=== PATIENT | male | born 1965 | race African-American/Black ===

== ENCOUNTER 2017-01-24 07:18 | Emergency (ER) | payer MEDICARE ==
[~2017-01-24] VITALS: Ht 177.8 cm; Wt 83.9 kg
[~2017-01-24 07:18] MED LIST: ASPI81TA2 PO; ATOR20TA58 PO; CARV6.25 PO; CLOP75TA27 PO; HYDR-2762 PO; HYDR-971 PO; NAPR550T PO; ORPH100T PO; atorvastatin; coreg; lipitor
[2017-01-24 07:38] VITALS: BP 106/65
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
[2017-01-24] MEDS ORDERED: IBUPROFEN 600 MG TABLET. PO ONE (08:00)
[2017-01-24] MEDS ORDERED: CYCLOBENZAPRINE 10 MG TABLET. PO ONE (08:00)
[2017-01-24] MEDS ORDERED: CYCL10TA2 PO (08:17)
--- NOTE | 2017-01-24 08:43 | RAD ---
Left femur, 2 views, 01/24/2017: History: Pain, fall No fracture or bony abnormality is detected. The soft tissues are unremarkable. IMPRESSION: No acute left femoral abnormality is detected.
== END 2017-01-24 08:47 | disposition home or self-care (01) ==
LOC: ER 07:18
DX: M79.652 Pain in left thigh (principal); I25.2 Old myocardial infarction; E78.00 Pure hypercholesterolemia, unspecified; I10 Essential (primary) hypertension; M17.11 Unilateral primary osteoarthritis, right knee; Z88.8 Allergy status to other drugs, medicaments and biological substances; W10.9XXA Fall (on) (from) unspecified stairs and steps, initial encounter; Y93.89 Activity, other specified; Y92.89 Other specified places as the place of occurrence of the external cause; Y99.8 Other external cause status
CPT/HCPCS: 73552; 99284

== ENCOUNTER 2017-09-14 08:31 | Emergency (ER) | payer MEDICARE, MEDICAID ==
[~2017-09-14] VITALS: Ht 177.8 cm; Wt 79.8 kg
[~2017-09-14 08:31] MED LIST changes: +ASPI-630 PO; -ASPI81TA2 PO; -CLOP75TA27 PO; +CLOP75TA57 PO; +CYCL10TA2 PO; +NAPR-682 PO; -NAPR550T PO
[2017-09-14 08:42] VITALS: BP 178/108
[2017-09-14] MEDS ORDERED: DICL50TA4 PO (09:13)
[2017-09-14] MEDS ORDERED: DIAZ5TAB PO (09:13)
[2017-09-14] MEDS ORDERED: METH4TAB2 PO (09:13)
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
== END 2017-09-14 09:24 | disposition home or self-care (01) ==
LOC: ER 08:31
DX: S76.311A Strain of muscle, fascia and tendon of the posterior muscle group at thigh level, right thigh, initial encounter (principal); I10 Essential (primary) hypertension; E78.00 Pure hypercholesterolemia, unspecified; I25.2 Old myocardial infarction; M19.90 Unspecified osteoarthritis, unspecified site; Z88.8 Allergy status to other drugs, medicaments and biological substances; X58.XXXA Exposure to other specified factors, initial encounter; Y93.39 Activity, other involving climbing, rappelling and jumping off; Y99.8 Other external cause status; Y92.89 Other specified places as the place of occurrence of the external cause
CPT/HCPCS: 99283

== ENCOUNTER 2018-03-21 11:01 | Emergency (ER) | payer MEDICARE, MEDICAID ==
[2018-03-21] MEDS: fentaNYL PF VIAL 100 MCG/2 ML VIAL IV ×2 (12:01→14:33)
[2018-03-21 12:12] LABS: ADD MAN DIFF? NO
[2018-03-21 12:14] LABS: BASO # 0.1 x10^3/uL (0.0-0.2); BASO % 0 % (0-3); EOS # 0.1 x10^3/uL (0.0-0.7); EOS % 1 % (0-3); HEMATOCRIT 43.5 % (39.0-53.0); HEMOGLOBIN 14.9 g/dL (13.0-17.5); LYMPH % 34 % (24-48); MEAN CORPUSCULAR HEMOGLOBIN 32 pg (25-35); MEAN CORPUSCULAR HGB CONC 34 g/dL (31-37); MEAN CORPUSCULAR VOLUME 92 fL (79-100); MONO # 0.7 x10^3/uL (0.0-1.1); MONO % 6 % (0-9); NEUT % 59 % (31-73); PLATELET COUNT 241 x10^3/uL (140-400); RED BLOOD COUNT 4.72 x10^6/uL (4.30-5.70); WHITE BLOOD COUNT 11.9 x10^3/uL (4.0-11.0)
[2018-03-21] MEDS ORDERED: CONTRAST GIVEN MC (12:15)
[2018-03-21 12:22] LABS: ANION GAP 8 (6-14); BLOOD UREA NITROGEN 16 mg/dL (8-26); BUN/CREATININE RATIO 13 (6-20); CALCIUM 8.9 mg/dL (8.5-10.1); CARBON DIOXIDE 32 mmol/L (21-32); CHLORIDE 100 mmol/L (98-107); CREATININE 1.2 mg/dL (0.7-1.3); GFR 76.3; GLUCOSE 94 mg/dL (70-99); SODIUM 140 mmol/L (136-145)
[2018-03-21 12:24] LABS: INR 1.1 (0.8-1.1); PARTIAL THROMBOPLASTIN TIME 30 SEC (24-38); PROTHROMBIN TIME PATIENT 13.4 SEC (11.7-14.0)
[2018-03-21 12:27] LABS: ALBUMIN 3.5 g/dL (3.4-5.0); ALBUMIN/GLOBULIN RATIO 0.8 (1.0-1.7); ALK PHOS 62 U/L (46-116); ALT (SGPT) 22 U/L (16-63); AST (SGOT) 20 U/L (15-37); TOTAL BILIRUBIN 0.5 mg/dL (0.2-1.0); TOTAL PROTEIN 7.9 g/dL (6.4-8.2)
[2018-03-21 12:35] LABS: BILIRUBIN,URINE NEGATIVE (NEG); CLARITY,URINE CLEAR; COLOR,URINE YELLOW; GLUCOSE,URINE NEGATIVE (NEG); NITRITE,URINE NEGATIVE (NEG); PH,URINE 6.5; PROTEIN,URINE NEGATIVE (NEG-TRACE)
[2018-03-21] MEDS: IOHEXOL 300 MG/ML 100ML VIAL. IV (12:48)
[2018-03-21 13:08] LABS: BACTERIA,URINE FEW /HPF (0-FEW); RBC,URINE 0 /HPF (0-2); SQUAMOUS EPITHELIAL CELL,UR OCC /LPF; WBC,URINE 0 /HPF (0-4)
== END 2018-03-21 14:50 | disposition home or self-care (01) ==
LOC: ER 11:01
DX: S22.089A Unspecified fracture of T11-T12 vertebra, initial encounter for closed fracture (principal); S32.10XA Unspecified fracture of sacrum, initial encounter for closed fracture; S09.90XA Unspecified injury of head, initial encounter; E78.00 Pure hypercholesterolemia, unspecified; I10 Essential (primary) hypertension; I25.2 Old myocardial infarction; Z88.8 Allergy status to other drugs, medicaments and biological substances; W10.9XXA Fall (on) (from) unspecified stairs and steps, initial encounter; Y93.89 Activity, other specified; Y99.8 Other external cause status; Y92.89 Other specified places as the place of occurrence of the external cause
CPT/HCPCS: 36415; 70450; 72125; 74177; 80053; 81001; 85025; 85610; 85730; 96374; 96376; 99285-25; J3010; Q9967

== ENCOUNTER 2018-07-22 23:12 | Emergency (ER) | payer MEDICARE, MEDICAID ==
[2018-03-21 14:42] VITALS: BP 131/88
[~2018-07-22 23:12] MED LIST changes: +CYCL5TAB PO; +DIAZ5TAB PO; +DICL50TA4 PO; +METH4TAB2 PO
== END 2018-07-23 01:06 | disposition left against medical advice (07) ==
LOC: ER 23:12
DX: M54.2 Cervicalgia (principal); Z53.21 Procedure and treatment not carried out due to patient leaving prior to being seen by health care provider

== ENCOUNTER 2019-03-22 07:35 | Emergency (ER) | payer MEDICARE, MEDICAID ==
[~2019-03-22] VITALS: Ht 177.8 cm; Wt 79.4 kg
[~2019-03-22 07:35] MED LIST changes: -HYDR-2762 PO; +HYDR-2765 PO; +HYDR-3164 PO; -HYDR-971 PO
[2019-03-22 07:46] VITALS: BP 155/104
[2019-03-22] MEDS ORDERED: LIDOCAINE (700MG/PATCH) PATCH. TD ONE (08:08)
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
== END 2019-03-22 08:54 | disposition home or self-care (01) ==
LOC: ER 07:35
DX: S29.012A Strain of muscle and tendon of back wall of thorax, initial encounter (principal); M79.601 Pain in right arm; I10 Essential (primary) hypertension; E78.00 Pure hypercholesterolemia, unspecified; I25.2 Old myocardial infarction; Z88.8 Allergy status to other drugs, medicaments and biological substances; X50.0XXA Overexertion from strenuous movement or load, initial encounter; Y93.89 Activity, other specified; Y92.89 Other specified places as the place of occurrence of the external cause; Y99.8 Other external cause status
CPT/HCPCS: 99283

== ENCOUNTER 2019-07-25 17:04 | Emergency (ER) | payer MEDICARE, MEDICAID ==
[~2019-07-25] VITALS: Ht 177.8 cm; Wt 79.4 kg
[2019-07-25 17:05] VITALS: BP 151/100
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
== END 2019-07-25 17:25 | disposition home or self-care (01) ==
LOC: ER 17:04
DX: M54.6 Pain in thoracic spine (principal); M54.2 Cervicalgia; E78.00 Pure hypercholesterolemia, unspecified; I10 Essential (primary) hypertension; I25.2 Old myocardial infarction; Z88.8 Allergy status to other drugs, medicaments and biological substances
CPT/HCPCS: 99284

== ENCOUNTER 2019-11-08 22:23 | Emergency (ER) | payer MEDICARE, MEDICAID ==
[~2019-11-08] VITALS: Ht 177.8 cm; Wt 81.6 kg
[2019-11-08 23:17] VITALS: BP 154/92
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
[2019-11-08] MEDS ORDERED: HYDR-3164 PO (23:43)
--- NOTE | 2019-11-09 00:09 | RAD ---
HAND LEFT 2V DATE: 11/08/2019 11:18 PM INDICATION: Slammed thumb in door, thumb pain COMPARISON: None. FINDINGS: Bones: Acute fracture of the first distal phalanx with mild dorsal displacement of the distal tip of the first distal phalanx. Joints: The joint spaces are normal. Miscellaneous: First digit soft tissue swelling IMPRESSION: Acute mildly displaced first distal phalanx fracture Electronically signed by: Charles Blount MD (11/09/2019 12:05 AM) [facility]
== END 2019-11-09 00:06 | disposition home or self-care (01) ==
LOC: ER 22:23
DX: S62.522A Displaced fracture of distal phalanx of left thumb, initial encounter for closed fracture (principal); I10 Essential (primary) hypertension; E78.00 Pure hypercholesterolemia, unspecified; I25.2 Old myocardial infarction; Z88.8 Allergy status to other drugs, medicaments and biological substances; W23.0XXA Caught, crushed, jammed, or pinched between moving objects, initial encounter; Y93.89 Activity, other specified; Y92.89 Other specified places as the place of occurrence of the external cause; Y99.8 Other external cause status
CPT/HCPCS: 29125; 73120; 99284-25

== ENCOUNTER 2019-12-13 09:15 | Emergency (ER) | payer MEDICARE, MEDICAID ==
[2019-12-13 09:30] VITALS: BP 164/113
[2019-12-13] MEDS ORDERED: ORPHENADRINE CITRATE 60 MG/2 ML VIAL. IM ONE (09:45)
[2019-12-13] MEDS ORDERED: HYDROcodone/APAP 5/325MG 1 TAB TABLET PO ONE (09:45)
[2019-12-13] MEDS ORDERED: HYDR-3164 PO (10:04)
[2019-12-13] MEDS ORDERED: METH4TAB2 PO (10:04)
[2019-12-13] MEDS ORDERED: ORPH100T PO (10:04)
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
== END 2019-12-13 10:14 | disposition home or self-care (01) ==
LOC: ER 09:15
DX: S29.012A Strain of muscle and tendon of back wall of thorax, initial encounter (principal); M54.2 Cervicalgia; M25.511 Pain in right shoulder; E78.00 Pure hypercholesterolemia, unspecified; I10 Essential (primary) hypertension; I25.2 Old myocardial infarction; X58.XXXA Exposure to other specified factors, initial encounter; Y93.89 Activity, other specified; Y92.89 Other specified places as the place of occurrence of the external cause; Y99.8 Other external cause status
CPT/HCPCS: 99283; J2360; 96372

== ENCOUNTER 2021-09-16 08:47 | Emergency (ER) | payer MEDICARE, OTHER ==
[~2021-09-16] VITALS: Ht 177.8 cm; Wt 79.5 kg
[2021-09-16 09:22] VITALS: BP 155/81
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
--- NOTE | 2021-09-16 10:08 | RAD ---
3 view study of the second toe of the right foot Clinical indications: Stubbed toe today. Swelling and pain. FINDINGS: In the lateral view, there is a dorsal plate fracture of the proximal epiphysis of the seco nd distal phalanx. The fracture fragment is mildly retracted proximally. Fracture fragment measures 2 mm. No dislocation or lytic process is seen. IMPRESSION: Dorsal plate fracture of the second distal phalanx. Electronically signed by: Chip Dietz MD (09/16/2021 10:06 AM) [id number]
== END 2021-09-16 10:26 | disposition home or self-care (01) ==
LOC: ER 08:47
DX: S92.511A Displaced fracture of proximal phalanx of right lesser toe(s), initial encounter for closed fracture (principal); E78.00 Pure hypercholesterolemia, unspecified; I10 Essential (primary) hypertension; I25.2 Old myocardial infarction; Z88.8 Allergy status to other drugs, medicaments and biological substances; W18.39XA Other fall on same level, initial encounter; Y93.89 Activity, other specified; Y92.89 Other specified places as the place of occurrence of the external cause; Y99.8 Other external cause status
CPT/HCPCS: 73660; 99283

== ENCOUNTER 2021-11-08 07:13 | Emergency (ER) | payer MEDICARE, OTHER ==
[~2021-11-08] VITALS: Ht 177.8 cm; Wt 84.1 kg
[~2021-11-08 07:13] MED LIST changes: +CYCL10TA19 PO; -CYCL10TA2 PO
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
[2021-11-08 08:40] LABS: BILIRUBIN,URINE NEGATIVE (NEG); CLARITY,URINE CLEAR; COLOR,URINE YELLOW; NITRITE,URINE NEGATIVE (NEG); PROTEIN,URINE NEGATIVE (NEG-TRACE)
[2021-11-08 08:50] LABS: BACTERIA,URINE FEW /HPF (0-FEW); WBC,URINE RARE /HPF (0-4)
[2021-11-08] MEDS ORDERED: DOXY100C3 PO (09:45)
[2021-11-08] MEDS ORDERED: DOXYCYCLINE HYCLATE 100 MG TABLET PO ONE (10:00)
[2021-11-08] MEDS ORDERED: cefTRIAXone IM 1 GM VIAL IM ONE (10:00)
[2021-11-08 10:20] VITALS: BP 181/86
== END 2021-11-08 10:20 | disposition home or self-care (01) ==
LOC: ER 07:13
DX: R31.9 Hematuria, unspecified (principal); R05.9 Cough, unspecified; R09.81 Nasal congestion; E78.00 Pure hypercholesterolemia, unspecified; I10 Essential (primary) hypertension; I25.2 Old myocardial infarction
CPT/HCPCS: 81001; 87491; 87591; 96372; 99284; J0696

== ENCOUNTER → 2022-02-06 | Day surgery (SDC) | payer MEDICARE, OTHER ==
[~2022-02-06] VITALS: Ht 177.8 cm; Wt 84.5 kg
[~2022-02-06] MED LIST changes: +DOXY100C3 PO; +IV RINGERS,LACTATED 1000ML 1,000 ML IV SCH; +LIDOCAINE 2% PF 5 ML VIAL. ONE; +MECL-75 PO; +PROPOFOL 10 MG/ML (20ML) VIAL. IV ONE
[2022-02-06 12:04] VITALS: BP 167/104
--- NOTE | 2022-02-06 13:17 | PDOC1 ---
History and Physical Date of Admission Date of Admission DATE: 02/06/22 TIME: 13:11 Identification/Chief Complaint Chief Complaint Colon cancer screening Source Source: Chart review, Patient History of Present Illness History of Present Illness 56 y/o male here for colon cancer screening. No prior. Denies pain, D, C, overt bleeding. Wt/appetite OK. No N, V. GIFH negative. No HB, dysphagia, PUD, GB, pancreatic history. H/o HCV, treated with direct-acting agent and documented SVR. Past Medical History Cardiovascular: CAD, Hyperlipidemia CENTRAL NERVOUS SYSTEM: Vertigo Musculoskeletal: low back pain, Osteoarthritis Past Surgical History Past Surgical History: Other ("Heart surgery", craniotomy) Family History Family History: No Significant Social History Smoke: 2 packs per day ALCOHOL: rare Drugs: None Current Medications Current Medications Current Medications Ringer's Solution 1,000 ml @ 50 mls/hr Q20H IV Last administered on 02/06/22at 12:12; Start 02/06/22 at 07:00; Stop 02/06/22 at 18:59 Propofol (Diprivan) 200 mg STK-MED ONCE IV ; Start 02/06/22 at 12:41; Stop 02/06/22 at 12:41; Status DC Lidocaine HCl (Lidocaine Pf 2% Vial) 5 ml STK-MED ONCE .ROUTE ; Start 02/06/22 at 12:41; Stop 02/06/22 at 12:41; Status DC Active Scripts Active Doxycycline Hyclate 100 Mg Capsule 1 Cap PO BID Orphenadrine Citrate 100 Mg Tablet.er 1 Tab PO BID Cyclobenzaprine Hcl 5 Mg Tablet 1 Tab PO TID PRN Cyclobenzaprine Hcl 10 Mg Tablet 10 Mg PO TID Reported Meclizine Hcl 25 Mg Tablet 1 Tab PO DAILY Hydrocodone-Apap 7.5-325 (Hydrocodone Bit/Acetaminophen) 1 Each Tablet 1 Tab PO QID Aspirin 81 Mg Tab.chew 81 Mg PO DAILY Coreg (Carvedilol) 6.25 Mg Tablet 6.25 Mg PO BID Allergies Allergies: Coded Allergies: phenytoin (Unverified Allergy, Intermediate, Rash, 02/06/22) ROS Review of System Otherwise negative. Physical Exam General: Alert, Oriented X3, Cooperative, No acute distress Lungs: Clear to auscultation Heart: S1S2, RRR, no gallops, no murmurs Abdomen: Normal bowel sounds, Soft, No tenderness, No hepatosplenomegaly, No masses Rectal Exam: deferred (to procedure) Extremities: No cyanosis, No edema Skin: No significant lesion Neuro: Normal speech, Strength at 5/5 X4 ext, Normal tone, Sensation intact, Cranial nerves 3-12 NL, Reflexes 2+ Psych/Mental Status: Mental status NL, Mood NL Vitals Vitals Vital Signs Date Time Temp Pulse Resp B/P (MAP) Pulse Ox O2 Delivery O2 Flow Rate FiO2 02/06/22 12:04 97.3 63 18 100 97.3 VTE Prophylaxis Ordered VTE Prophylaxis Devices: No VTE Pharmacological Prophylaxi: No Assessment/Plan Assessment/Plan IMP: Appears at average risk for colon cancer. PLAN: colonoscopy. NIKOLAI OMER MD Feb 06, 2022 13:17
--- NOTE | 2022-02-06 13:44 | PDOC4 ---
PROCEDURE Procedure Colonoscopy with biopsies Indication: screening Meds: per anesthesia Findings: ROSEANNE normal --'Scope advanced to cecum. Prep adequate for polyps>6mm. Mucosa normal, no diverticulosis. 3, 1-3mm polyps in distal sigmoid, biopsied off. 3mm rectal polyp, biopsied off. Retroflex normal. Zoltan. well. IMP: small polyps REC: Await path. Resume home meds, diet. F/u in 2 weeks. Repeat colonoscopy based on path. NIKOLAI OMER MD Feb 06, 2022 13:44
[2022-02-06 14:20] VITALS: BP 151/90
--- NOTE | 2022-02-08 17:07 | PATHOLOGY ---
[facility] Accession Number: [id number] . 01 Material submitted: . PART A: sigmoid colon - SIGMOID POLYPS PART B: rectum - RECTAL POLYP . 01 Clinical history: . SCREENING, COLONOSCOPY . 02 Diagnosis: A. Colon biopsies, sigmoid polyps: - Hyperplastic polyps (2). - Prominent mucosal fold with mucosal-associated lymphoid aggregate (1). . B. Colorectal biopsies, rectal polyp: - Hyperplastic polyp, chronically inflamed. (JP:[facility]; 02/08/2022) [facility] 02/08/2022 1204 Local . 02 Comment: There are no adenomatous changes or evidence of malignancy. (JPM:donnie; 02/08/2022) . 02 Electronically signed: . Domo Wesley MD, Pathologist NPI- [id number] . 01 Gross description: . A. The specimen is received in formalin, labeled "Banerjee, Berrien, sigmoid polyps". Received are 3 segments of pale orozco tissue ranging in size from 0.3 to 0.4 cm in maximum dimensions. The specimen is submitted entirely in cassette A1. . B. The specimen is received in formalin, labeled "Banerjee, Eleanor, rectal polyp". Received are 2 segments of pale orozco tissue ranging in size from 0.3 to 0.4 cm in maximum dimensions. The specimen is submitted entirely in cassette B1.([facility]; 02/07/2022) [facility] 02/07/2022 1540 Local . 02 Pathologist provided ICD-10: K63.5, K62.1, K62.89 . 02 CPT . 423766, [id number] Specimen Comment: A courtesy copy of this report has been sent to [phone], [phone] Specimen Comment: [id number] Specimen Comment: Report sent to / DR MANUEL Performed at: [address] [facility] [address], [place], [place] [id number] MD Ollie Petersen MD Phone: [phone] Performed at: 02 [facility] [place] [address] [place], [place] [id number] MD Domo Wesley MD Phone: [phone]
== END | disposition home or self-care (01) ==
LOC: SURG 11:36
PROVIDERS: ATTEND Internal Medicine Gastroenterology
DX: Z12.11 Encounter for screening for malignant neoplasm of colon (principal); K62.1 Rectal polyp; K63.5 Polyp of colon; K63.89 Other specified diseases of intestine; I25.10 Atherosclerotic heart disease of native coronary artery without angina pectoris; E78.00 Pure hypercholesterolemia, unspecified; M19.90 Unspecified osteoarthritis, unspecified site; I10 Essential (primary) hypertension; J44.9 Chronic obstructive pulmonary disease, unspecified; K21.9 Gastro-esophageal reflux disease without esophagitis; Z79.82 Long term (current) use of aspirin; Z79.899 Other long term (current) drug therapy; Z98.890 Other specified postprocedural states; Z87.891 Personal history of nicotine dependence; Z88.8 Allergy status to other drugs, medicaments and biological substances
CPT/HCPCS: 45380; J2704